=== PATIENT | male | born 1975 | race Caucasian/White ===

== ENCOUNTER → 2022-07-03 14:27 | Outpatient (CLI) | payer BC, SELFPAY ==
--- NOTE | 2022-07-03 14:39 | XR_ITS ---
FINAL REPORT CLINICAL HISTORY: Acute right elbow pain COMPARISON: None FINDINGS: RIGHT ELBOW SERIES 2 views of the elbow were obtained. There is no acute fracture or dislocation. The joint spaces are intact. The soft tissues are unremarkable. IMPRESSION: No acute fracture. Reviewed, Interpreted and Dictated by Erasmo Hoff MD Transcribed by Kori Hernandez Authenticated and [facility]
== END ==
PROVIDERS: PCP Nurse Practitioner Family; Visit Provider Nurse Practitioner Family
DX: M25.521 Pain in right elbow (principal)
CPT/HCPCS: 73070

== ENCOUNTER → 2022-08-02 13:01 | Outpatient (CLI) | payer BC, SELFPAY ==
--- NOTE | 2022-08-02 13:08 | MR_ITS ---
FINAL REPORT CLINICAL HISTORY: RIGHT ELBOW PAIN. popping in elbow. lateral sided elbow pain. no injury or trauma. symptoms x8-9 months. FINDINGS: Multiplanar MR imaging of the right elbow was performed without contrast. The bony structures are intact without evidence of fracture, bone bruise or marrow edema. There is no evidence of osteochondral lesion. The ligaments appear intact. There is tendinosis of the common extensor tendon without evidence of tear. The common flexor tendon is intact. The biceps tendon is intact. The distal triceps tendon is intact. The brachialis tendon is intact. The musculature has an unremarkable appearance. No soft tissue mass or cyst is identified. There is a small joint effusion. No focal abnormality is identified of the ulnar nerve. IMPRESSION: Common extensor tendinosis without evidence of tear. Authenticated and [facility]
== END ==
PROVIDERS: PCP Nurse Practitioner Family; Visit Provider Nurse Practitioner Family
DX: M25.521 Pain in right elbow (principal)
CPT/HCPCS: 73221